=== PATIENT | female | born 1960 | race Caucasian/White ===

== ENCOUNTER 2017-11-03 16:41 | Emergency (ER) | payer BC ==
[~2017-11-03] VITALS: Ht 162.6 cm; Wt 88.0 kg
[~2017-11-03 16:41] MED LIST: AMLODIPINE BESY10 MG PO; ASPIRIN81 M3 PO; BENEFIBER1 EAC1; BENTYL10 MG PO; DEXILANT60 MG PO; ESIDRIX25 MG PO; FAMOTIDINE20 MG PO; HYDRALAZINE HCL25 MG PO; IBANDRONATE SO150 MG PO; K-DUR20 ME2 PO; LIDOCAINE; METOPROLOL PO; METOPROLOL SUCC50 MG PO; MOBIC7.5 MG PO; MORPHINE SULFAT15 MG PO; ONDANSETRON HCL4 MG PO; PANTOPRAZOLE SO40 MG PO; PREMARIN0.625 MG PO; PROTONIX20 MG PO; ROZEREM8 MG PO; TIZANIDINE HCL4 MG PO; TOPAMAX100 MG PO; ULTRAM 50MG50 MG PO; Z.0.LASIX20 MG PO
[2017-11-03 17:37] VITALS: BP 148/68
== END 2017-11-03 17:45 | disposition home or self-care (01) ==
LOC: FSED 16:41
DX: R30.0 Dysuria (principal); R10.2 Pelvic and perineal pain; N76.1 Subacute and chronic vaginitis; B37.3 Candidiasis of vulva and vagina
CPT/HCPCS: 81003; 99282

== ENCOUNTER → 2017-12-27 | Outpatient (CLI) | payer BC ==
--- NOTE | 2017-12-27 14:53 | Diagnostic Imaging Report ---
PROCEDURE: BONE DXA DUAL ENERGY COMPARISON:08/23/2013 INDICATIONS:SCREENING FOR OSTEOPORSIS FINDINGS:Evaluation of the left hip and lumbar spine was performed utilizing DEXA Hologic bone densitometer. The study is technically adequate. The patient does not have any known previous non-traumatic fractures or other risk factors. Left femoral neck bone mineral density: 0.708 gm/cm2, T-score is -1.3, Z-score is 0.0. Left hip total bone mineral density: 0.832 gm/cm2, T-score is -0.9, Z-score is 0.0. Since the prior examination (08/23/2013) the left total hip bone mineral density has decreased by 1.8% Lumbar spine total bone mineral density: 0.960 gm/cm2, T-score is -0.8, Z-score is 0.6. Impression: Left femoral neck bone mineral densities classified as osteopenia. Fracture risk is increased. The patient's fracture risk is compared to an age-matched control. Correlate clinically for the necessity and timing of the next bone mineral density study. Dictated by: Raymond Henderson M.D. on 12/27/2017 at 14:59 Electronically approved by: Raymond Henderson M.D. on 12/27/2017 at 14:59
== END ==
LOC: DX 10:07
PROVIDERS: ATTEND Family Medicine
DX: Z13.820 Encounter for screening for osteoporosis (principal)
CPT/HCPCS: 77080

== ENCOUNTER → 2018-01-05 | Outpatient (CLI) | payer BC ==
--- NOTE | 2018-01-05 17:55 | Diagnostic Imaging Report ---
BILATERAL KNEE STANDING - 1 VIEW HISTORY: \[id number] \S\[id number] \S\OSTEOPENIA COMPARISON: None available. FINDINGS: Bones: No acute displaced fracture. Osseous alignment is within normal limits. Joints: Mild joint space narrowing of both medial compartments. Soft tissues: The soft tissues appear unremarkable. IMPRESSION: Mild degenerative changes of both medial compartments. Signed by: Dr. Teena Hatch M.D. on 01/05/2018 5:16 PM
--- NOTE | 2018-01-05 17:55 | Diagnostic Imaging Report ---
LEFT LOWER EXTREMITY X-RAY - 4 VIEWS HISTORY: \S\OSTEOPENIA COMPARISON: None available. FINDINGS: Bones: No acute displaced fracture. Osseous alignment is within normal limits. Normal bone mineralization on limited view. Joints: The joint spaces are well-maintained. Soft tissues: The soft tissues appear unremarkable. IMPRESSION: No acute radiographic abnormality. Signed by: Dr. Teena Hatch M.D. on 01/05/2018 5:17 PM
== END ==
LOC: RAD 13:50
PROVIDERS: ATTEND Family Medicine
DX: M85.862 Other specified disorders of bone density and structure, left lower leg (principal); M85.861 Other specified disorders of bone density and structure, right lower leg; M85.88 Other specified disorders of bone density and structure, other site
CPT/HCPCS: 73565

== ENCOUNTER → 2018-02-21 | Outpatient (CLI) | payer BC | LOC: MAMMO 13:21 | PROVIDERS: ATTEND Family Medicine | DX: Z12.31 Encounter for screening mammogram for malignant neoplasm of breast (principal) | CPT/HCPCS: 77067 ==

== ENCOUNTER → 2018-06-29 | Outpatient (CLI) | payer BC ==
--- NOTE | 2018-06-29 16:54 | Diagnostic Imaging Report ---
Exam: Abdominal radiograph History: Renal stone Comparison: None. Findings: Nonobstructive bowel gas pattern. No renal calculi. Multiple pelvic phleboliths. Impression: No renal calculi Signed by: Dr. Tony Ontiveros M.D. on 06/29/2018 4:50 PM
== END ==
LOC: RAD 12:35
PROVIDERS: ATTEND Urology
DX: Z87.442 Personal history of urinary calculi (principal)
CPT/HCPCS: 74018

== ENCOUNTER 2018-07-10 13:30 | Emergency (ER) | payer BC ==
[~2018-07-10] VITALS: Ht 162.6 cm; Wt 88.0 kg
[2018-07-10] MEDS ORDERED: CYCLOBENZAPRINE HCL 10 MG TAB PO ONE (13:45)
[2018-07-10] MEDS ORDERED: TRAMADOL HCL 50 MG TAB PO ONE (13:45)
--- NOTE | 2018-07-10 14:07 | Diagnostic Imaging Report ---
Exam: Left hand 3 views History: Fall concern for fracture Comparison: None. Findings: No acute, displaced fracture or dislocation. Appropriate alignment between the distal radius, lunate, and capitate is maintained on the lateral radiograph. Joint spaces are well-maintained. No gross soft tissue defect. Impression: No acute osseous abnormality. Signed by: Dr. Domenic Lyon M.D. on 07/10/2018 2:03 PM
--- NOTE | 2018-07-10 14:09 | Diagnostic Imaging Report ---
Exam: Left shoulder 2 views History: Shoulder pain, concern for fracture Comparison: None. Findings: No acute, displaced fracture or dislocation. Humeral head projects appropriately adjacent to the glenoid. There is mild glenohumeral and acromioclavicular joint space narrowing with undersurface acromioclavicular osteophytosis. Soft tissues are unremarkable. Partially visualized left hemithorax is well aerated. Impression: No acute osseous abnormality. Signed by: Dr. Domenic Lyon M.D. on 07/10/2018 2:05 PM
--- NOTE | 2018-07-10 14:13 | Diagnostic Imaging Report ---
Exam: Cervical spine complete History: Fall, concern for fracture Comparison: None. Findings: The cervical spine is visualized from the skull base to the top of T1 on the lateral radiograph. No acute displaced fracture or subluxation. Soft tissue, ligamentous, and spinal cord abnormalities cannot be excluded on the basis of plain radiography. Questionable increase in the atlantoaxial interval to 6 mm may be artifactual. There is disc space narrowing and anterior disc osteophyte complex at C6-C7. Remaining disc spaces are relatively well-maintained. Neural foramina are patent on the oblique radiographs. Prevertebral soft tissues are of normal thickness. Impression: Questionable increase in the atlantoaxial interval on the lateral radiograph may be artifactual. However, in the setting of trauma a CT scan of the cervical spine without contrast is suggested for further evaluation. Otherwise no acute osseous abnormalities. Soft tissue, ligamentous, and spinal cord abnormalities cannot be excluded on the basis of plain radiography. Signed by: Dr. Domenic Lyon M.D. on 07/10/2018 2:10 PM
[2018-07-10] MEDS ORDERED: IBUPROFEN 400 MG TAB ONE (14:33)
[2018-07-10] MEDS ORDERED: IBUPROFEN 400 MG TAB PO ONE (14:45)
== END 2018-07-10 15:00 | disposition home or self-care (01) ==
LOC: ER 13:30
DX: M54.2 Cervicalgia (principal); S16.1XXA Strain of muscle, fascia and tendon at neck level, initial encounter; S46.812A Strain of other muscles, fascia and tendons at shoulder and upper arm level, left arm, initial encounter; S60.222A Contusion of left hand, initial encounter; W01.0XXA Fall on same level from slipping, tripping and stumbling without subsequent striking against object, initial encounter; Y92.008 Other place in unspecified non-institutional (private) residence as the place of occurrence of the external cause; I10 Essential (primary) hypertension
CPT/HCPCS: 72050; 99283

== ENCOUNTER → 2018-07-24 | Outpatient (CLI) | payer BC ==
--- NOTE | 2018-07-24 16:15 | Diagnostic Imaging Report ---
MRI SPINE CERVICAL WO HISTORY: Cervical radiculopathy COMPARISON: Cervical spine radiographs 07/10/2018 TECHNIQUE: Sagittal T1, sagittal T2, sagittal inversion recovery, axial T2 and axial T1 weighted MR images of the cervical spine were obtained without intravenous contrast. DISCUSSION: Alignment: Straightening of the cervical lordosis. No scoliosis. Vertebrae: No definite evidence for fractures, infection, or neoplasm. Cervicomedullary junction: No abnormalities. Spinal cord: Normal in signal and morphology from the foramen magnum through T4-T5. Soft tissues: There are small bilateral perineural cysts at T1-T2. A 0.7 cm T2 hyperintense nodule is seen in the right thyroid lobe. Mild to moderate multilevel cervical disc degeneration is superimposed on a congenitally narrow cervical spinal canal. Mild atlantoaxial arthrosis is present as well. C2-C3: Patent canal and foramina. C3-C4: Mild to moderate canal stenosis due to posterior disc osteophyte complex and ligamentum flavum thickening. Mild to moderate bilateral foraminal stenoses due to uncovertebral and facet arthrosis. C4-C5: Mild to moderate canal stenosis due to posterior disc osteophyte complex and ligamentum flavum thickening. Mild right and moderate left foraminal stenoses due to uncovertebral and facet arthrosis. C5-C6: Mild to moderate canal stenosis due to posterior disc osteophyte complex and ligamentum flavum thickening. Mild right and moderate left foraminal stenoses due to uncovertebral and facet arthrosis. C6-C7: Mild canal stenosis due to posterior disc osteophyte complex and ligamentum flavum thickening. Mild to moderate bilateral foraminal stenoses due to uncovertebral and facet arthrosis. C7-T1: Patent canal and foramina. IMPRESSION: 1. Mild to moderate multilevel disc degeneration superimposed on a congenitally narrow cervical spinal canal. 2. Multilevel congenital/degenerative canal stenoses - mild to moderate from C3-C4 to C5-C6. 3. Multilevel bilateral degenerative foraminal stenoses - moderate on the left at C4-C5 and on the left at C5-C6. Signed by: Dr. Mc Cordova M.D. on 07/24/2018 4:12 PM
== END ==
LOC: MRI 10:21
PROVIDERS: ATTEND Specialist
DX: M54.12 Radiculopathy, cervical region (principal)
CPT/HCPCS: 72141

== ENCOUNTER → 2018-08-06 | Outpatient (CLI) | payer BC ==
--- NOTE | 2018-08-06 14:42 | Diagnostic Imaging Report ---
EXAMINATION: Thyroid ultrasound. CLINICAL HISTORY: Right thyroid nodule COMPARISON: MRI cervical spine 07/24/2018. DISCUSSION: Transverse and longitudinal images of the thyroid were obtained utilizing grayscale and color Doppler modalities. The right thyroid lobe measures 4.4 x 1.5 x 1.6 cm and shows normal echogenicity. 2 x 1.1 x 1.6 cm ovoid, solid, predominantly hypoechoic nodule in the lower pole without definite internal calcification. The left thyroid lobe measures 4.5 x 0.8 x 1.3 cm and shows normal echogenicity. No nodules are seen. The thyroid isthmus measures 0.2 cm and shows normal echogenicity. No nodules are seen. There is no adenopathy. IMPRESSION: TIRADS category 4 nodule in the lower pole of the right lobe. Ultrasound-guided fine-needle aspiration is recommended based on size greater than 1.5 cm maximum dimension. Signed by: Dr. Domenic Lyon M.D. on 08/06/2018 2:38 PM
== END ==
LOC: US 12:44
PROVIDERS: ATTEND Family Medicine
DX: E04.1 Nontoxic single thyroid nodule (principal)
CPT/HCPCS: 76536

== ENCOUNTER 2018-09-06 05:26 | Observation (INO) | payer BC ==
[2018-09-04 12:33] LABS: BASOPHILS # (AUTO) 0.1 (0.0-0.1); BASOPHILS % 0.9 % (0.0-1.0); EOSINOPHILS # (AUTO) 0.2 (0.0-0.4); EOSINOPHILS % 2.1 % (0.0-6.0); HEMATOCRIT 40.8 % (34.2-44.1); LYMPHOCYTES % 39.1 % (18.0-39.1); MEAN CORPUSCULAR HEMOGLOBIN 28.2 pg (28-32); MEAN CORPUSCULAR HGB CONC 31.9 g/dL (31-35); MEAN CORPUSCULAR VOLUME 88.5 fL (81-99); MONOCYTES # (AUTO) 0.6 (0.2-0.8); MONOCYTES % 8.1 % (4.4-11.3); NEUTROPHILS # (AUTO) 3.8 (2.1-6.9); NEUTROPHILS % 49.5 % (38.7-80.0); PLATELET COUNT 347 x10e3/uL (140-360); RED BLOOD COUNT 4.61 x10e6/uL (3.6-5.1); RED CELL DISTRIBUTION WIDTH 13.8 % (11.7-14.4)
[2018-09-04 12:51] LABS: ANION GAP 10.3 mmol/L (8-16); BLOOD UREA NITROGEN 14 mg/dL (7-26); BUN/CREATININE RATIO 16 (6-25); CALCIUM 9.9 mg/dL (8.4-10.2); CARBON DIOXIDE 27 mmol/L (22-29); CHLORIDE 104 mmol/L (98-107); CREATININE, SERUM 0.85 mg/dL (0.57-1.11); EST GLOMERULAR FILTRATION RATE > 60 ML/MIN (60-); GLUCOSE 91 mg/dL (74-118); POTASSIUM 4.3 mmol/L (3.5-5.1); SODIUM 137 mmol/L (136-145)
[2018-09-04 12:56] LABS: INR 0.92; PROTHROMBIN TIME 12.8 seconds (11.9-14.5)
--- NOTE | 2018-09-04 13:29 | Diagnostic Imaging Report ---
EXAMINATION: PA and lateral views of the chest. COMPARISON: None CLINICAL HISTORY: Preoperative evaluation, degenerative disc disease DISCUSSION: Lines/tubes: None. Lungs: The lungs are well inflated and clear. No pneumonia or pulmonary edema. Pleura: No pleural effusion or pneumothorax. Heart and mediastinum: The cardiomediastinal silhouette is normal. Bones and soft tissues: No acute bony abnormalities. IMPRESSION: No acute cardiopulmonary abnormalities. Signed by: Dr. oTny Ontiveros M.D. on 09/04/2018 1:26 PM
[~2018-09-06] VITALS: Ht 162.6 cm; Wt 92.2 kg
[~2018-09-06 05:26] MED LIST changes: +MACROBID 100 M100 MG PO; +NAPROXEN250 MG PO
[2018-09-06] MEDS ORDERED: VANCOMYCIN 1GM/NS 250 ML 250 ML ONE (06:05)
[2018-09-06] MEDS ORDERED: BUPIVACAINE 0.5%/EPI 30 ML SDV INJ ONE (06:32)
[2018-09-06] MEDS ORDERED: THROMBIN FOR SOLN 5,000 UNIT VIAL ONE (06:32)
[2018-09-06] MEDS ORDERED: BACITRACIN 50,000 UNIT VIAL ONE (06:33)
[2018-09-06] MEDS ORDERED: GELATIN SPONGE 12-7MM ONE (06:33)
[2018-09-06] MEDS ORDERED: ACETAMINOPHEN 1000 MG/100 ML 100 ML IV ONE (07:19)
[2018-09-06] MEDS ORDERED: LIDOCAINE HCL (LTA) 4 ML SOLN ONE (07:20)
[2018-09-06] MEDS ORDERED: IBUPROFEN 250 ML IV ONE (07:22)
--- NOTE | 2018-09-06 07:25 | NUR ---
SPIRITUAL CARE - Pre-Surgery Assessment: Pt in bed. Pt's at bedside. Pt reported supportive attention from family and friends. Intervention: I provided pastoral presence, hospitality, sympathetic listening, and prayer. I acquainted pt with availability of asphalt mixing machine operator while hospitalized. Outcome: Pt expressed appreciation for visit. No need for follow up indicated at this time. TERESITA Hardylain Spiritual Care Department O: [phone] Pager: [phone] ([phone] + number calling from)
[2018-09-06] MEDS ORDERED: MORPHINE SULFATE 5 MG/ML VIAL IM PRN (09:15)
[2018-09-06] MEDS ORDERED: PROMETHAZINE HCL (IM) 25 MG/ML VIAL IM PRN (09:15)
[2018-09-06] MEDS ORDERED: ONDANSETRON HCL INJ 2MG/ML 2ML 2 MG/ML VIAL IV PRN (09:15)
[2018-09-06] MEDS ORDERED: MAGNESIUM/ALUMINUM/SIMETHICONE 30 ML UDC PO PRN (09:15)
[2018-09-06] MEDS ORDERED: ACETAMINOPHEN 325 MG TAB PO PRN (09:15)
[2018-09-06] MEDS ORDERED: FENTANYL CITRATE/PF 100MCG/2 ML INJ ONE ×2 (09:31→19:21)
--- NOTE | 2018-09-06 10:00 | NUR ---
pt arrived to unit resp even and unlabored at this time no distress noted, pt was able to ambulate from stretcher, pt has cervical collar intact, pt has very little pain at this time as stated by pt. pt oriented to room and call light, bed in lowest position, bed rails upx2, call light in reach, will cont to monitor.
[2018-09-06 12:14] VITALS: BP 132/68
[2018-09-06] MEDS: LACTATED RINGER'S 1,000 ML IV SCH ×2 (12:25→15:43)
[2018-09-06] MEDS ORDERED: ROCURONIUM BROMIDE 10 MG/ML 5ML VIAL ONE (15:23)
[2018-09-06] MEDS ORDERED: LIDOCAINE HCL 2% JELLY 5 ML TUBE ONE (15:23)
[2018-09-06] MEDS ORDERED: SEVOFLURANE INHAL SOLN 250 ML PEN BTL ONE (15:23)
[2018-09-06] MEDS ORDERED: DEXAMETHASONE SOD PHOS INJ 4 MG/ML VIAL ONE (15:23)
[2018-09-06] MEDS ORDERED: ONDANSETRON HCL INJ 2MG/ML 2ML 2 MG/ML VIAL ONE (15:23)
[2018-09-06] MEDS ORDERED: LIDOCAINE HCL 2% LOCAL INJ 5 ML SDV VIAL INJ ONE (15:23)
[2018-09-06] MEDS ORDERED: NEOSTIGMINE 5 MG/5ML SYR ONE (15:23)
[2018-09-06] MEDS ORDERED: PROPOFOL IV EMULSION 10 MG/ML 20 ML VIAL ONE (15:23)
[2018-09-06] MEDS ORDERED: GLYCOPYRROLATE INJ 1MG/ 5 ML SYR ONE (15:23)
--- NOTE | 2018-09-06 15:47 | Operative Report ---
DATE OF PROCEDURE: 09/06/2018 SURGEON: Carlito Salgado MD PREOPERATIVE DIAGNOSIS: C5-6 and C6-7 spondylosis with radiculopathy, M50.120. POSTOPERATIVE DIAGNOSIS: C5-6 and C6-7 spondylosis with radiculopathy, M50.120. PROCEDURES: 1. C5-6 anterior cervical diskectomy and microsurgical osteophyte resection and allograft fusion, 76711. 2. C6-7 anterior cervical diskectomy and microsurgical osteophyte resection and allograft fusion, 95746. 3. Preparation of tricortical iliac crest allograft, 85127. 4. C5-6 and C6-7 anterior cervical plating with Synthes CSLP plate, [id number]. ANESTHESIA: General. INDICATIONS: The patient is a 58-year-old woman, who presents with C5-6 and C6-7 spondylosis and chronic disk herniations and foraminal stenosis symptomatic with left-sided cervical radiculopathy. She was taken to the operating room for two-level anterior cervical decompression and fusion. PROCEDURE IN DETAIL: After induction of general anesthesia, the patient was placed on the operating table in supine position. The right side of the neck was prepped and draped in sterile fashion. The fluoroscopic C-arm was positioned in cross-table lateral orientation. A transverse incision was created on the right side of neck superimposed on the C6 vertebral body as determined by fluoroscopy. The platysma was divided in line with the incision. A subplatysmal dissection was carried out and avascular plane of dissection was developed medially to sternocleidomastoid muscle and was followed medial to the carotid sheath to the anterior border of the cervical spine. The deep cervical fascia was opened and esophagus was retracted to the left. The attachments of longus colli muscles to the anterolateral aspects of vertebral bodies of C5, C6, and C7 were divided. The anterior longitudinal ligament was resected. Coleman posts were inserted into C5 and C7. The Coleman distractor was used to distract both disk spaces simultaneously. The anterior annuli of disks were incised with #11 blade. The contents of both disks were thoroughly evacuated with angled curettes and pituitary rongeurs. The posterior osteophytes were meticulously drilled with a 2 mm cutting bur on a high-speed drill until they were completely removed. The posterior anulus of the disk, herniated disk material, and the posterior longitudinal ligament were resected layer by layer until the dura was fully exposed and decompressed and the medial aspects of the uncinate processes were resected bilaterally to further expose any compressed origins of the corresponding nerve roots. After satisfactory decompression had been achieved, the endplates were prepped for fusion. Two pieces of tricortical iliac crest allograft were cut to the size and shapes of the disk spaces and were inserted into the disk spaces under distraction and fluoroscopic guidance. The distraction was released and distraction posts were removed. A Synthes CSLP variable type anterior cervical plate measuring 34 mm was selected and was affixed to vertebral bodies of C5, C6 and C7 with three pairs of 14 x 4.35 mm screws. All screw holes were drilled and tapped on the lateral fluoroscopic guidance. All screws were locked with the appropriate locking screws. An excellent construct was obtained. The wound was copiously irrigated with bacitracin solution. Meticulous hemostasis was secured. Retractor was removed. The platysma was closed with 3-0 Vicryl sutures. The skin was closed with 4-0 Monocryl sutures in subcuticular fashion. Steri-Strips and dressing were applied. The patient was awakened, extubated, and taken to postanesthesia care unit in stable condition. No intraoperative complications were encountered. Estimated blood loss was 30 mL. Carlito Salgado MD PP/KERI /[id number]
--- NOTE | 2018-09-06 16:13 | NUR ---
SOCIAL WORK INITIAL ASSESSMENT Profiling Machine Setup Operator to bedside to discuss plan of care with patient/family. CM/SW role and care transitions discussed. Anticipated discharge plan discussed along with duration of care. CM/SW discussed patients right to make decisions in care. CM/SW work hours given. Patient lives: IN HOME WITH FAMILY Admit/Transfer: VIA SURGERY POA/Emergency contact: RAFAEL [phone] Current/Previous Home Health: NONE PCP/Follow-up Care: [facility] Current/Previous DME: NONE Other Services: NONE Employment Status: HERE Areas of Concerns: NONE Referral Needs: NONE Education Needs: NONE IMM/LORD given and signed (if applicable): NA Goal for discharge: RETURN HOME INDEPENDENTLY CM/SW left business card at the bedside with contact information. Name and number was also written on the patients whiteboard. Patient verbalized understanding of discussion. CM will follow-up with ongoing discharge and transition of care needs.
[2018-09-06] MEDS: CEPACOL SORE THROAT LOZENGES PO PRN ×2 (16:58→20:38)
[2018-09-06] MEDS: OXYCODONE/ACETAMINOPHEN 5-325 1 EACH TABLET PO PRN ×2 (17:08→21:13)
[2018-09-06] MEDS: VANCOMYCIN 1GM/NS 250 ML 250 ML IV SCH (17:14)
[2018-09-06 17:33] VITALS: BP 122/68
--- NOTE | 2018-09-06 18:58 | NUR ---
report given to oncoming nurse, for cont. care.
[2018-09-06] MEDS ORDERED: MIDAZOLAM HCL 2 MG/2 ML VIAL ONE (19:21)
[2018-09-06 20:00] VITALS: BP 114/57
[2018-09-06 21:00] VITALS: BP 114/57
[2018-09-06] MEDS ORDERED: ZOLPIDEM TARTRATE 5 MG TAB PO PRN (21:00)
[2018-09-06] MEDS: CARISOPRODOL 350 MG TAB PO PRN (22:16)
[2018-09-07] VITALS: BP 113/59
[2018-09-07] MEDS: LACTATED RINGER'S 1,000 ML IV SCH (01:52)
[2018-09-07 04:00] VITALS: BP 99/55
[2018-09-07] MEDS: VANCOMYCIN 1GM/NS 250 ML 250 ML IV SCH (06:05)
--- NOTE | 2018-09-07 06:37 | Diagnostic Imaging Report ---
Cervical Spine, 2 views HISTORY: Postoperative evaluation COMPARISON: 07/10/2018. FINDINGS: On the lateral view, the cervical spine is visualized from the skull base to C7. The alignment is normal. Status post anterior fusion of C5-C6 and C6-C7 with compression metallic plate and screws which appear intact. Minimal maki-screw lucency. Minimal prevertebral soft tissue swelling at the fusion levels. IMPRESSION: Status post anterior fusion of C5-C6 and C6-C7 with intact hardware. Signed by: Dr. Polo Perales M.D. on 09/07/2018 6:34 AM
[2018-09-07] MEDS: OXYCODONE/ACETAMINOPHEN 5-325 1 EACH TABLET PO PRN (06:44)
[2018-09-07] MEDS: CARISOPRODOL 350 MG TAB PO PRN (06:44)
[2018-09-07 08:01] VITALS: BP 90/51
[2018-09-07] MEDS ORDERED: METOPROLOL SUCCINATE 50 MG TAB XL PO SCH (09:00)
[2018-09-07] MEDS ORDERED: NON-FORMULARY MEDICATION ([Metoprolol] 50 MG) PO SCH (09:00)
[2018-09-07] MEDS ORDERED: NAPROXEN 250 MG TAB PO SCH (09:00)
[2018-09-07] MEDS ORDERED: NITROFURANTOIN MACROCRYSTALS 100 MG CAP PO SCH (09:00)
[2018-09-07] MEDS: CEPACOL SORE THROAT LOZENGES PO PRN (09:08)
[2018-09-07] MEDS ORDERED: NORCO 7.5-3251 EACH PO (09:54)
== END 2018-09-07 10:30 | disposition home or self-care (01) ==
LOC: OR 05:26 → PACU V 09:15 → IMCU 10:32
PROVIDERS: ADMIT Neurological Surgery; ATTEND Neurological Surgery
DX: M50.122 Cervical disc disorder at C5-C6 level with radiculopathy (principal); M48.02 Spinal stenosis, cervical region; M47.22 Other spondylosis with radiculopathy, cervical region; Z01.810 Encounter for preprocedural cardiovascular examination; Z01.812 Encounter for preprocedural laboratory examination; Z01.811 Encounter for preprocedural respiratory examination; Z88.0 Allergy status to penicillin; Z88.2 Allergy status to sulfonamides; E04.1 Nontoxic single thyroid nodule; K21.9 Gastro-esophageal reflux disease without esophagitis; I34.1 Nonrheumatic mitral (valve) prolapse; Z87.440 Personal history of urinary (tract) infections
CPT/HCPCS: 20931; 22551; 22552; 22845; 36415; 71046; 72040; 80048; 85025; 85610; 85730; 86850; 86900; 88304; C1713 ×4; C1763; G0378 ×2; J0131; J1100; J2001 ×2; J2250; J2405; J2704; J3370 ×2; J3490; J7121; 77003

== ENCOUNTER → 2018-10-04 | Outpatient (CLI) | payer BC ==
[~2018-10-04] MED LIST changes: +NORCO 7.5-3251 EACH PO
--- NOTE | 2018-10-04 15:16 | Diagnostic Imaging Report ---
Cervical spine, 4 views. History: Cervical fusion. Comparison: 09/07/2018. Discussion: The cervical spine is visualized on the lateral view from C1 through the top of C7. Anterior cervical fusion of C5-C7 is unchanged in appearance, with intact surgical hardware. There is no evidence of subluxation on flexion and extension views. There is normal lordotic curvature. There is no evidence of fracture, subluxation, or posterior splaying. Moderate disc space narrowing at C4-C5 is unchanged. The prevertebral soft tissues are within normal limits. IMPRESSION: Stable appearance of the cervical spine status post C5-C7 anterior fusion. No evidence of instability on flexion and extension views. Degenerative disc disease at C4-C5. Signed by: Kvng Powell on 10/04/2018 3:12 PM
== END ==
LOC: RAD 13:39
PROVIDERS: ATTEND Neurological Surgery
DX: M50.20 Other cervical disc displacement, unspecified cervical region (principal); Z98.1 Arthrodesis status
CPT/HCPCS: 72050

== ENCOUNTER → 2019-01-12 | Day surgery (SDC) | payer BC ==
[2019-01-08 17:18] LABS: BASOPHILS # (AUTO) 0.1 (0.0-0.1); EOSINOPHILS # (AUTO) 0.2 (0.0-0.4); EOSINOPHILS % 2.2 % (0.0-6.0); HEMATOCRIT 37.1 % (34.2-44.1); HEMOGLOBIN 12.1 g/dL (12.0-16.0); LYMPHOCYTES # (AUTO) 3.3 (1.0-3.2); LYMPHOCYTES % 39.8 % (18.0-39.1); MEAN CORPUSCULAR HEMOGLOBIN 27.9 pg (28-32); MEAN CORPUSCULAR HGB CONC 32.6 g/dL (31-35); MEAN CORPUSCULAR VOLUME 85.7 fL (81-99); MONOCYTES # (AUTO) 0.7 (0.2-0.8); MONOCYTES % 8.8 % (4.4-11.3); NEUTROPHILS # (AUTO) 3.9 (2.1-6.9); NEUTROPHILS % 47.8 % (38.7-80.0); PLATELET COUNT 334 x10e3/uL (140-360); RED BLOOD COUNT 4.33 x10e6/uL (3.6-5.1); RED CELL DISTRIBUTION WIDTH 14.1 % (11.7-14.4)
[~2019-01-12] MED LIST changes: +FENTANYL CITRATE/PF 100MCG/2 ML INJ ONE; +KETAMINE HCL INJ 50 MG/ML 10 ML VIAL ONE; +METOCLOPRAMIDE HCL 10 MG/2ML VIAL ONE; +MIDAZOLAM HCL 2 MG/2 ML VIAL ONE; +OMEPRAZOLE-BIC1 EAC1 PO; +PROPOFOL IV EMULSION 10 MG/ML 50 ML VIAL ONE
[2019-01-12 08:50] VITALS: BP 127/68
--- NOTE | 2019-01-12 09:06 | Operative Report ---
DATE OF PROCEDURE: 01/12/2019 SURGEON: Jassi Melgar MD PROCEDURE: EGD with biopsies. INDICATIONS FOR EGD: Heartburn, nausea, and vomiting. MEDICATIONS: The patient was done under MAC, please see anesthesiologist's note. PROCEDURE IN DETAIL: With the patient in lateral decubitus position, flexible fiberoptic Olympus gastroscope was introduced into the esophagus under direct visualization without any difficulty. There was some patchy erythema noted in distal esophagus. The scope was then advanced with ease into the stomach traversing a small hiatal hernia. Mucosa overlying the antrum and the body revealed some patchy erythema and low-grade edema. Biopsies were obtained and sent to stain for H pylori. The pylorus was of normal contour and shape, it was intubated with ease. The scope was advanced all the way to the second portion of the duodenum. Biopsies were obtained from the proximal second portion and duodenal bulb to rule out sprue. The scope was then withdrawn back into the stomach and retroflexed and the mucosa overlying the fundus appeared to be within normal limits. The previously described hiatal hernia was also noted. The scope was then straightened out, it was subsequently withdrawn. The patient tolerated the procedure well. Of note, there was prominent esophageal veins noted versus very early esophageal varices. IMPRESSION: 1. Distal esophagitis, mild. 2. Prominent esophageal veins versus and grade 1 esophageal varices. 3. Small hiatal hernia. 4. Gastritis, biopsied. Biopsies sent to stain for Helicobacter pylori. 5. Rule out sprue. PLAN: Follow up histology. Increase Zegerid to 40 mg one p.o. a.c. b.i.d. Dietary instructions were given. If symptoms persist, we will consider a prokinetic agent at bedtime. MD COY Gama/KERI /[id number] cc: Tony Schilling DO
[2019-01-12 09:10] LABS: ALBUMIN 3.7 g/dL (3.5-5.0); BILIRUBIN,DIRECT 0.2 mg/dL (0.0-0.5)
== END | disposition home or self-care (01) ==
LOC: OR 05:45
PROVIDERS: ATTEND Internal Medicine Gastroenterology
DX: K29.70 Gastritis, unspecified, without bleeding (principal); K20.9 Esophagitis, unspecified; K44.9 Diaphragmatic hernia without obstruction or gangrene; I10 Essential (primary) hypertension; I34.1 Nonrheumatic mitral (valve) prolapse; K21.9 Gastro-esophageal reflux disease without esophagitis; E07.89 Other specified disorders of thyroid; Z88.0 Allergy status to penicillin; Z88.2 Allergy status to sulfonamides; Z01.810 Encounter for preprocedural cardiovascular examination; Z01.812 Encounter for preprocedural laboratory examination; Z68.33 Body mass index [BMI] 33.0-33.9, adult; Z86.010 Personal history of colon polyps
CPT/HCPCS: 36415 ×2; 43239; 80076; 85025; 93005; J2250; J2704; J2765; J3010

== ENCOUNTER → 2019-01-17 | Outpatient (CLI) | payer BC ==
[~2019-01-17] MED LIST changes: -FENTANYL CITRATE/PF 100MCG/2 ML INJ ONE; -KETAMINE HCL INJ 50 MG/ML 10 ML VIAL ONE; -METOCLOPRAMIDE HCL 10 MG/2ML VIAL ONE; -MIDAZOLAM HCL 2 MG/2 ML VIAL ONE; -PROPOFOL IV EMULSION 10 MG/ML 50 ML VIAL ONE
--- NOTE | 2019-01-17 17:07 | Diagnostic Imaging Report ---
EXAM: US ABDOMEN COMPLETE DATE: 01/17/2019 2:04 PM INDICATION: Abdominal pain COMPARISON: Abdominal ultrasound of 04/16/2010 TECHNIQUE: Transverse and longitudinal dunne scale and color doppler sonographic images of the upper abdomen were obtained. FINDINGS: There is no evidence of fluid or masses seen in the area of clinical concern in the right lower quadrant. LIVER 12.8 cm in the right midclavicular line. Normal echogenicity of the liver with normal contour, no masses. SPLEEN 7.9 cm in maximum diameter. Normal echogenicity, no masses. GALLBLADDER No gallbladder wall thickening, distension, stone, or pericholecystic fluid. NEgative reported sonographic Hernandez's sign. Gallbladder wall measures 3 mm. BILE DUCTS No intra nor extra-hepatic biliary dilation. Common bile duct measures 0.3cm PANCREAS: Visualized portions are normal. RIGHT KIDNEY: 10.5 cm Echogenicity: Normal Collecting System: No hydronephrosis Stones: None Cyst/Mass: None LEFT KIDNEY: 10.5 cm Echogenicity: Normal Collecting System: No hydronephrosis Stones: None Cyst/Mass: None VESSELS: Aorta: Visualized portions are within normal size limits Inferior Vena Cava: Visualized portions are normal Main Portal Vein: 0.6 cm, normal size with hepatopetal flow. FREE FLUID: None IMPRESSION: Unremarkable abdominal ultrasound. Signed by: Manjit Milligan MD on 01/17/2019 5:03 PM
== END ==
LOC: US 14:00
PROVIDERS: ATTEND Internal Medicine Gastroenterology
DX: R10.10 Upper abdominal pain, unspecified (principal)
CPT/HCPCS: 76700

== ENCOUNTER → 2019-02-20 | Outpatient (CLI) | payer BC ==
--- NOTE | 2019-02-22 09:28 | Diagnostic Imaging Report ---
#[id number] - MGSCRBIL #BILATERAL DIGITAL SCREENING MAMMOGRAM WITH CAD: 02/20/2019 CLINICAL: Routine screening. Comparison is made to exams dated: 02/21/2018 mammogram, 01/17/2017 mammogram and 09/02/2016 mammogram - [facility]. Current study contains 4 films. There are scattered fibroglandular elements in both breasts. Current study was also evaluated with a Computer Aided Detection (CAD) system. There are benign calcifications in both breasts. There also are post operative findings in the right breast with a scar marker present. Additionally there is a biopsy clip in the left breast. No significant masses, calcifications, or other findings are seen in either breast. IMPRESSION: BENIGN There is no mammographic evidence of malignancy. A 1 year screening mammogram is recommended. The patient will be notified by letter of the results. CHANEL LOPEZ M.D. ct/penrad:02/21/2019 10:43:36 Shape Carver: Jolanta NIETO(R)(Jamarcus), [facility] letter sent: Normal Exam Mammogram BI-RADS: 2 Benign
== END ==
LOC: MAMMO 15:04
PROVIDERS: ATTEND Family Medicine
DX: Z12.31 Encounter for screening mammogram for malignant neoplasm of breast (principal)
CPT/HCPCS: 77067

== ENCOUNTER → 2019-03-29 | Outpatient (CLI) | payer BC ==
--- NOTE | 2019-03-29 08:59 | Diagnostic Imaging Report ---
EXAMINATION: SPINE CERVICAL AP LAT FLEX EXT INDICATION: Postoperative COMPARISON: None FINDINGS: AP and lateral radiographs in neutral, flexion and extension were obtained. The patient is status post anterior cervical discectomy and fusion at C5-7. Alignment is anatomic and appears unchanged on flexion and extension radiographs. No acute fracture or dislocation. Hardware appears intact. The prevertebral soft tissues are normal in thickness. Mild multilevel degenerative changes. The partially visualized lung apices are clear. IMPRESSION: Unchanged alignment status post anterior cervical discectomy and fusion at C5-7. Signed by: Manjit Milligan MD on 03/29/2019 8:56 AM
== END ==
LOC: RAD 06:51
PROVIDERS: ATTEND Neurological Surgery
DX: M50.20 Other cervical disc displacement, unspecified cervical region (principal); M43.22 Fusion of spine, cervical region
CPT/HCPCS: 72050

== ENCOUNTER → 2019-07-06 | Day surgery (SDC) | payer BC ==
[~2019-07-06] MED LIST changes: +FENTANYL CITRATE/PF 100MCG/2 ML INJ ONE; +GLUCAGON FOR INJ 1 MG VIAL ONE; +HYOSCYAMINE 0.125 MG TAB ONE; +MIDAZOLAM HCL 2 MG/2 ML VIAL ONE; +PROPOFOL IV EMULSION 10 MG/ML 50 ML VIAL ONE
--- NOTE | 2019-07-06 18:07 | Operative Report ---
DATE OF PROCEDURE: 07/06/2019 SURGEON: Jassi Melgar MD PROCEDURE: Colonoscopy. INDICATIONS FOR COLONOSCOPY: Surveillance colonoscopy, personal history of colon polyps. MEDICATIONS: The patient was done under MAC, please see anesthesiologist's note. PROCEDURE IN DETAIL: With the patient in left lateral decubitus position, the flexible fiberoptic Olympus colonoscope was inserted into the rectum with ease and advanced all the way to the cecum. It was then withdrawn slowly. Mucosa overlying the cecum, ascending colon, transverse colon, and descending colon appeared to be within normal limits. Diverticular disease was noted in the sigmoid colon. The rectum appeared to be within normal limits. The scope was then retroflexed into the distal rectum and some small internal hemorrhoids were noted, none of which was actively bleeding. The scope was then straightened out. It was subsequently withdrawn. The patient tolerated the procedure well. IMPRESSION: 1. Diverticulosis. 2. Internal hemorrhoids, none actively bleeding. PLAN: Initiate high-fiber, low-fat diet. Initiate high-fiber supplement. The patient might benefit from a followup colonoscopy in 5 years. Jassi Melgar MD [facility]/YELITZAL /[id number] cc: Tony Schilling DO
== END | disposition home or self-care (01) ==
LOC: OR 09:51
PROVIDERS: ATTEND Internal Medicine Gastroenterology
DX: K59.00 Constipation, unspecified (principal); Z86.010 Personal history of colon polyps; K57.30 Diverticulosis of large intestine without perforation or abscess without bleeding; K64.8 Other hemorrhoids; K20.9 Esophagitis, unspecified; K29.60 Other gastritis without bleeding; I10 Essential (primary) hypertension; I34.1 Nonrheumatic mitral (valve) prolapse; Z88.0 Allergy status to penicillin; Z88.2 Allergy status to sulfonamides; Z01.810 Encounter for preprocedural cardiovascular examination; Z68.32 Body mass index [BMI] 32.0-32.9, adult; Z80.0 Family history of malignant neoplasm of digestive organs
CPT/HCPCS: 45378; 93005; J1610; J2704

== ENCOUNTER → 2019-11-01 | Outpatient (CLI) | payer BC ==
[~2019-11-01] MED LIST changes: -FENTANYL CITRATE/PF 100MCG/2 ML INJ ONE; -GLUCAGON FOR INJ 1 MG VIAL ONE; -HYOSCYAMINE 0.125 MG TAB ONE; -MIDAZOLAM HCL 2 MG/2 ML VIAL ONE; -PROPOFOL IV EMULSION 10 MG/ML 50 ML VIAL ONE
--- NOTE | 2019-11-01 13:28 | Diagnostic Imaging Report ---
EXAM: Renal Ultrasound INDICATION: ^URINARY TRACT INFECTION COMPARISON: Abdominal ultrasound 01/17/2019 TECHNIQUE: Transverse and longitudinal images of the kidneys and bladder were obtained. FINDINGS: Right Kidney: Length: 9.4 cm Appearance: Normal echogenicity. Collecting system: No hydronephrosis Stones: None Cyst/Mass: None Left Kidney: Length: 10.7 cm Appearance: Normal echogenicity. Collecting system: No hydronephrosis Stones: None Cyst/Mass: None Bladder: No mass or calculi. Bilateral ureteral jets visualized. Prevoid volume estimate of 204 cc. IMPRESSION: No renal calculi or hydronephrosis. Signed by: Manjit Milligan MD on 11/01/2019 1:25 PM
--- NOTE | 2019-11-01 13:42 | Diagnostic Imaging Report ---
Exam: KUB - 2 views Indication: Urinary tract infection Comparison: None Findings: No radiographic apparent renal calculi. Nonobstructive bowel gas pattern. No free air. Phleboliths in the pelvis. No acute osseous injury. Impression: No radiographically apparent renal calculi. Signed by: Manjit Milligan MD on 11/01/2019 1:38 PM
== END ==
LOC: US 12:44
PROVIDERS: ATTEND Urology
DX: N39.0 Urinary tract infection, site not specified (principal)
CPT/HCPCS: 74018; 76770

== ENCOUNTER → 2020-05-21 | Outpatient (CLI) | payer OTHER ==
[~2020-05-21] MED LIST changes: +COVID-19 VACC, MRNA(MODERNA)/PF 100 MCG/0.5 ML VIAL IM ONE
== END ==
LOC: VACCPMC 16:00
DX: Z23 Encounter for immunization (principal); Z20.822 Contact with and (suspected) exposure to COVID-19

== ENCOUNTER → 2020-06-19 | Outpatient (CLI) | payer OTHER | END | DRG 951 | LOC: VACCPMC 09:33 | DX: Z23 Encounter for immunization (principal); Z20.822 Contact with and (suspected) exposure to COVID-19 | CPT/HCPCS: 0012A; 91301 ==

== ENCOUNTER 2020-09-10 15:00 | Outpatient (RCR) | payer BC, OTHER ==
[~2020-09-10 15:00] MED LIST changes: -COVID-19 VACC, MRNA(MODERNA)/PF 100 MCG/0.5 ML VIAL IM ONE
== END 2020-09-11 ==
LOC: OT 15:00
PROVIDERS: ATTEND Specialist
DX: M75.42 Impingement syndrome of left shoulder (principal); M77.12 Lateral epicondylitis, left elbow

== ENCOUNTER 2020-10-08 15:08 | Outpatient (RCR) | payer OTHER | END 2020-10-12 | LOC: OT 15:08 | PROVIDERS: ATTEND Specialist | DX: M75.42 Impingement syndrome of left shoulder (principal); M77.12 Lateral epicondylitis, left elbow ==

== ENCOUNTER 2020-11-04 14:45 | Outpatient (RCR) | payer OTHER | END 2020-11-11 | LOC: OT 14:45 | PROVIDERS: ATTEND Specialist | DX: M75.42 Impingement syndrome of left shoulder (principal); M77.12 Lateral epicondylitis, left elbow ==

== ENCOUNTER → 2020-11-26 | Outpatient (CLI) | payer OTHER ==
[~2020-11-26] MED LIST changes: +GADOBENATE DIMEGLUMINE 1 ML IV ONE; +IOPAMIDOL 200 MG/ML 20 ML VIAL IT ONE; +LIDOCAINE HCL 1% LOCAL INJ 20 ML VIAL ONE
== END ==
LOC: DX 07:13
PROVIDERS: ATTEND Specialist
DX: S43.432D Superior glenoid labrum lesion of left shoulder, subsequent encounter (principal)
CPT/HCPCS: 23350; 73222; 77002; A9577; J2001; Q9967

== ENCOUNTER → 2021-01-06 | Day surgery (SDC) | payer OTHER ==
[2021-01-01 07:34] LABS: BASOPHILS # (AUTO) 0.1 (0.0-0.1); EOSINOPHILS # (AUTO) 0.2 (0.0-0.4); HEMATOCRIT 39.8 % (34.2-44.1); HEMOGLOBIN 12.5 g/dL (12.0-16.0); LYMPHOCYTES # (AUTO) 2.9 (1.0-3.2); LYMPHOCYTES % 41.4 % (18.0-39.1); MEAN CORPUSCULAR HEMOGLOBIN 27.8 pg (28-32); MEAN CORPUSCULAR HGB CONC 31.4 g/dL (31-35); MEAN CORPUSCULAR VOLUME 88.6 fL (81-99); MONOCYTES # (AUTO) 0.6 (0.2-0.8); NEUTROPHILS # (AUTO) 3.1 (2.1-6.9); NEUTROPHILS % 45.2 % (38.7-80.0); PLATELET COUNT 356 x10e3/uL (140-360); RED BLOOD COUNT 4.49 x10e6/uL (3.6-5.1); RED CELL DISTRIBUTION WIDTH 13.7 % (11.7-14.4)
[~2021-01-06] MED LIST changes: +ACETAMINOPHEN 1000 MG/100 ML 100 ML IV ONE; +CLINDAMYCIN PHOS 900MG/ 50ML 50 ML IV ONE; +EPINEPHRINE 1 MG/ML 30ML VIAL ONE; -GADOBENATE DIMEGLUMINE 1 ML IV ONE; -IOPAMIDOL 200 MG/ML 20 ML VIAL IT ONE; -LIDOCAINE HCL 1% LOCAL INJ 20 ML VIAL ONE; +NITROFURANTOIN100 MG PO
[2021-01-06 11:00] VITALS: BP 121/60
== END | disposition home or self-care (01) ==
LOC: OR 06:11
PROVIDERS: ATTEND Specialist
DX: M75.102 Unspecified rotator cuff tear or rupture of left shoulder, not specified as traumatic (principal); Z88.0 Allergy status to penicillin; Z88.2 Allergy status to sulfonamides; E07.9 Disorder of thyroid, unspecified; K21.9 Gastro-esophageal reflux disease without esophagitis; Z87.442 Personal history of urinary calculi; M19.012 Primary osteoarthritis, left shoulder; M65.812 Other synovitis and tenosynovitis, left shoulder; M94.212 Chondromalacia, left shoulder; Z01.810 Encounter for preprocedural cardiovascular examination; Z01.812 Encounter for preprocedural laboratory examination; Z01.818 Encounter for other preprocedural examination; Z20.822 Contact with and (suspected) exposure to COVID-19
CPT/HCPCS: 29824; 29826; 29827; 36415; 71046; 85025; C1713; J0131; U0002

== ENCOUNTER → 2021-03-16 | Outpatient (CLI) | payer OTHER ==
[~2021-03-16] MED LIST changes: -ACETAMINOPHEN 1000 MG/100 ML 100 ML IV ONE; -CLINDAMYCIN PHOS 900MG/ 50ML 50 ML IV ONE; +COVID-19 VACC, MRNA(MODERNA)/PF 100 MCG/0.5 ML VIAL IM ONE; -EPINEPHRINE 1 MG/ML 30ML VIAL ONE
== END ==
LOC: VACCPMC 08:44
DX: Z23 Encounter for immunization (principal); Z20.822 Contact with and (suspected) exposure to COVID-19

== ENCOUNTER → 2024-12-25 | Day surgery (SDC) | payer OTHER ==
[2024-12-19 10:23] LABS: BASOPHILS % 0.9 % (0.0-1.0); EOSINOPHILS % 2.5 % (0.0-6.0); LYMPHOCYTES % 39.3 % (18.0-39.1); MONOCYTES % 8.9 % (4.4-11.3); NEUTROPHILS % 48.3 % (38.7-80.0); RED CELL DISTRIBUTION WIDTH 14.0 % (11.7-14.4)
[~2024-12-25] MED LIST changes: -COVID-19 VACC, MRNA(MODERNA)/PF 100 MCG/0.5 ML VIAL IM ONE; +HYDROCHLOROTH12.5 MG PO; +LOSARTAN POTASS50 MG PO; +PROPOFOL IV EMULSION 50 ML IV ONE
[2024-12-25] MEDS: LACTATED RINGER'S 1,000 ML ONE (09:19)
[2024-12-25 11:12] VITALS: TEMP 98.2
[2024-12-25 11:40] VITALS: BP 145/73; PULSE 64; RESP 16; O2SAT 100
== END | disposition home or self-care (01) ==
LOC: OR 07:58
PROVIDERS: ATTEND Internal Medicine Gastroenterology
DX: Z09 Encounter for follow-up examination after completed treatment for conditions other than malignant neoplasm (principal); Z86.0100 Personal history of colon polyps, unspecified; K57.30 Diverticulosis of large intestine without perforation or abscess without bleeding; K64.8 Other hemorrhoids; K21.9 Gastro-esophageal reflux disease without esophagitis; I10 Essential (primary) hypertension; R01.1 Cardiac murmur, unspecified; I34.1 Nonrheumatic mitral (valve) prolapse; Z88.0 Allergy status to penicillin; Z88.2 Allergy status to sulfonamides; Z01.810 Encounter for preprocedural cardiovascular examination; Z01.812 Encounter for preprocedural laboratory examination; Z79.899 Other long term (current) drug therapy
CPT/HCPCS: 36415; 45378; 85025; 93005